=== PATIENT | female | born 1975 | race Caucasian/White ===

== ENCOUNTER 2019-07-16 12:27 | Emergency (ER) | payer OTHER ==
[~2019-07-16] VITALS: Ht 162.6 cm; Wt 72.6 kg
[2019-07-16 13:11] LABS: HEMATOCRIT 43.6 % (37.0-47.0); HEMOGLOBIN 14.6 gm/dL (12.0-15.0); MCH 32.2 pg (26.0-34.0); MCHC 33.5 g/dL (28.0-37.0); MCV 96.1 fL (80.0-100.0); PLATELET COUNT 248 thou/uL (150-400); RBC 4.54 mil/uL (4.20-5.00); RDW 12.4 % (10.5-14.5); WBC 5.8 thou/uL (4.0-11.0)
[2019-07-16 13:17] LABS: ANION GAP 10 mmol/L (7-16); BUN 8 mg/dL (7-18); CALCIUM 9.8 mg/dL (8.5-10.1); CHLORIDE 100 mmol/L (98-107); CO2 26 mmol/L (21-32); CREATININE 0.6 mg/dL (0.6-1.0); GLUCOSE 91 mg/dL (74-106); POTASSIUM 3.6 mmol/L (3.5-5.1); SODIUM 136 mmol/L (136-145)
[2019-07-16 13:27] LABS: ALBUMIN 4.3 g/dL (3.4-5.0); APTT 32.7 Seconds (24.5-32.8); INR 1.1; MAGNESIUM 1.8 mg/dL (1.8-2.4); PROTIME 10.9 Seconds (9.3-11.4); SGOT 17 U/L (15-37); SGPT 27 U/L (30-65); TOTAL BILIRUBIN 0.4 mg/dL (<0.1-1.0); TOTAL PROTEIN 8.5 g/dL (6.4-8.2); TROPONIN-I <0.06 ng/mL (<0.06)
[2019-07-16 13:46] LABS: ABSOLUTE NEUTROPHILS 3.7 thou/uL (1.4-8.2)
[2019-07-16 13:47] LABS: ANISOCYTOSIS SLIGHT
[2019-07-16 14:04] LABS: URINE BILIRUBIN NEGATIVE (Negative); URINE BLOOD 2+ (Negative); URINE CLARITY CLEAR; URINE COLOR YELLOW; URINE GLUCOSE-RANDOM* NEGATIVE (Negative); URINE KETONES 1+ (Negative); URINE LEUKOCYTES-REFLEX NEGATIVE (Negative); URINE NITRITE-REFLEX NEGATIVE (Negative); URINE PROTEIN (DIPSTICK) NEGATIVE (Negative); URINE SPECIFIC GRAVITY <= 1.005 (1.005-1.035); URINE UROBILINOGEN 0.2 E.U./dl (0.2-1.0)
[2019-07-16 14:15] LABS: BACTERIA-REFLEX 1-9 Few /HPF (None Seen); CASTS None Seen /LPF (None Seen); CRYSTALS None Seen /LPF (None Seen); SQUAMOUS 0-3 Few /LPF (0-3); URINE RBC 3-10 Few /HPF (0-2); URINE WBC-REFLEX 0-5 Rare /HPF (0-5)
--- NOTE | 2019-07-16 14:32 | EKG ---
[address] [place] [address] ELECTROCARDIOGRAM REPORT Name: SPENSERLAVERN [facility]: [facility] DIST[facility] [id number] Admission: 07/16/19 Attend Phys: Discharge: Date of : 79 Report #: [id number] THIS REPORT FOR: //name// [facility] ED Test Date: 2019-07-16 Test Time: 12:34:12 Pat Name: ALVERN DUEÑAS Department: Room: Gender: F Change Room Attendant: ARMANDO : 1975 Requested By: Jeramy Dey Order Number: [id number] MD: Milind Molina Measurements Intervals [place] Rate: 76 P: 12 MI: 138 QRS: 9 QRSD: 90 T: -45 QT: 386 QTc: 435 Interpretive Statements Sinus rhythm RSR' in V1 or V2, probably normal variant Borderline repolarization abnormality No previous ECG available for comparison Electronically Signed On 07-16-2019 14:31:38 [employer] by Milind Molina [email or web address] <ELECTRONICALLY SIGNED> By: Milind Molina MD 07/16/19 1431 1234 1234 MD JOSHUA Love
[2019-07-16] MEDS ORDERED: PRILOSEC OTC20 MG PO (15:39)
[2019-07-16 15:55] VITALS: BP 134/82
[2019-07-16] MEDS ORDERED: TESSALON PERLE100 MG PO (15:59)
[2019-07-16] MEDS ORDERED: PROTONIX40 MG PO (15:59)
== END 2019-07-16 16:00 | disposition home or self-care (01) ==
LOC: ER 12:27
PROVIDERS: Emergency Medicine
DX: R07.89 Other chest pain (principal); R05 Cough; R10.13 Epigastric pain; K21.9 Gastro-esophageal reflux disease without esophagitis; Q67.6 Pectus excavatum